=== PATIENT | female | born 1955 | race Caucasian/White ===

== ENCOUNTER → 2019-11-18 11:38 | Outpatient (CLI) | payer BC, SELFPAY ==
--- NOTE | ~2019-11-18 | MM_ITS ---
EXAMINATION: MM screening loan BI w melquiades HISTORY: Screening mammogram TECHNIQUE: Craniocaudal and mediolateral oblique 3-D tomosynthesis images were obtained and synthetic 2-D images were generated. CAD analysis was submitted and interpreted. COMPARISON: 09/12/2018, 07/09/2017, 01/24/2016 bilateral digital screening mammogram examinations BREAST PARENCHYMAL COMPOSITION: There are scattered areas of fibroglandular density. FINDINGS: There is no evidence of suspicious mass, calcification, or architectural distortion to sugg est malignancy in either breast. There has been no suspicious interval change. IMPRESSION: 1. No mammographic evidence of malignancy. 2. Recommend routine screening mammography in one year. BI-RADS Category 1: Negative Reviewed, dictated and finalized at location A. EL ASSISTANT
== END ==
PROVIDERS: PCP Internal Medicine; Visit Provider Internal Medicine
DX: Z12.31 Encounter for screening mammogram for malignant neoplasm of breast (principal)
CPT/HCPCS: 77063; 77067

== ENCOUNTER → 2021-01-10 13:25 | Outpatient (CLI) | payer BC, SELFPAY ==
--- NOTE | ~2021-01-10 | MM_ITS ---
EXAMINATION: MM screening loan BI w melquiades HISTORY: Screening mammogram TECHNIQUE: Craniocaudal and mediolateral oblique 3-D tomosynthesis images were obtained and synthetic 2-D images were generated. CAD analysis was submitted and interpreted. COMPARISON: 11/2019, 09/04/2018, 07/05/2017 bilateral digital screening mammogram examinations BREAST PARENCHYMAL COMPOSITION: There are scattered areas of fibroglandular density. FINDINGS: There is no evidence of suspicious mass, calcification, or architectural distortion to sugg est malignancy in either breast. There has been no suspicious interval change. IMPRESSION: 1. No mammographic evidence of malignancy. 2. Recommend routine screening mammography in one year. BI-RADS Category 1: Negative Reviewed, dictated and finalized at location A.
== END ==
PROVIDERS: PCP Internal Medicine; Visit Provider Internal Medicine
DX: Z12.31 Encounter for screening mammogram for malignant neoplasm of breast (principal)
CPT/HCPCS: 77063; 77067

== ENCOUNTER → 2022-03-05 10:54 | Outpatient (CLI) | payer MEDICARE, SELFPAY ==
--- NOTE | ~2022-03-05 | MM_ITS ---
EXAMINATION: MM screening loan BI w melquiades HISTORY: Screening mammogram TECHNIQUE: Craniocaudal and mediolateral oblique 3-D tomosynthesis images were obtained and synthetic 2-D images were generated. CAD analysis was submitted and interpreted. COMPARISON: 01/10/2021, 11/2019, 09/12/2018 bilateral screening mammogram examinations BREAST PARENCHYMAL COMPOSITION: There are scattered areas of fibroglandular density. FINDINGS: There is no evidence of suspicious mass, calcification, or architectural distortion to sugg est malignancy in either breast. There has been no suspicious interval change. IMPRESSION: 1. No mammographic evidence of malignancy. 2. Recommend routine screening mammography in one year. BI-RADS Category 1: Negative Reviewed, dictated and finalized at location A.
== END ==
PROVIDERS: PCP Internal Medicine; Visit Provider Internal Medicine
DX: Z12.31 Encounter for screening mammogram for malignant neoplasm of breast (principal)
CPT/HCPCS: 77063; 77067

== ENCOUNTER 2023-07-11 10:46 | Outpatient (CLI) | payer MEDICARE, SELFPAY ==
[2023-07-11 11:38] LABS: Creatine Kinase 78 U/L (26-192); NT Pro B Type Natriuretic Pept 298 pg/mL (0-125)
== END 2023-07-11 10:47 | disposition home or self-care (01) ==
LOC: CHSLAB 10:51
PROVIDERS: PCP Internal Medicine; Visit Provider Internal Medicine
DX: I10 Essential (primary) hypertension (principal); R94.31 Abnormal electrocardiogram [ECG] [EKG]
CPT/HCPCS: 36415; 82550; 82553; 83880; 84484

== ENCOUNTER 2023-07-17 10:55 | Outpatient (CLI) | payer MEDICARE, SELFPAY ==
--- NOTE | 2023-08-14 13:28 | WPDHOLTEREM ---
Holter/Event Monitor Holter/Event Monitor Date of procedure: 07/17/23 Holter/Event Procedure: Event Monitor Indications: Palpitations Conclusion: 1. 23 days event monitor between 07/17/23-08/13/23. There are 70 available transmissions for analysis. 2. Predominant rhythm is sinus rhythm. HR range 41-160 bpm; average HR 71 bpm. HR at 41 bpm was sinus bradycardia on 08/12/23 at 03:19. 3. There are occasional premature supraventricular complexes with total burden of 1%. There are short runs of atrial fibrillation with total burden of <.1%; the fastest HR is at 160 bpm. 4. There are occasional premature ventricular complexes with total burden of 1%. No ventricular tachycardia. 5. No significant pauses greater than 2 seconds. 6. Patient reports 27 episodes of symptoms of skipped beat, and symptoms other than listed which demonstrate 9 episodes of atrial fibrillation with HR range 78-112 bpm and 18 episodes in sinus rhythm, HR range 70-118 bpm with 6 episodes with PAC's.
== END 2023-07-17 10:56 | disposition home or self-care (01) ==
LOC: CHSCARD 10:58
PROVIDERS: PCP Internal Medicine; Visit Provider Internal Medicine
DX: R00.2 Palpitations (principal)
CPT/HCPCS: 93270

== ENCOUNTER 2023-07-29 09:22 | Outpatient (CLI) | payer MEDICARE, SELFPAY ==
--- NOTE | 2023-07-29 09:37 | ECHO_ITS ---
Patient Info Name: Valeri Chen Age: 68 years : 1955 Gender: Female Ht: 69 in Wt: 158 lbs BSA: 1.87 m2 HR: 65 bpm BP: 183 / 79 mmHg Heart Rhythm: Sinus Rhythm Technical Quality: Good Exam Date: 07/29/2023 10:28 AM Exam Location: Echo Lab Patient Status: Outpatient Admit Date: 07/29/2023 Staff Ordering Physician: Chas Gonzalez MD Digital Associate: Hero Frazier RDCS Attending Provider: Chas Gonzalez MD Referring Physician: Carlos ZAVALETA; Exam Type: CA echo doppler color flow Study Info Indications - HTN, ABN EKG Complete two-dimensional, color flow and Doppler transthoracic echocardiogram is performed. Summary 1. Complete two-dimensional, color flow and Doppler transthoracic echocardiogram is performed. 2. Left ventricular chamber dimension is normal. 3. Left ventricular systolic function is normal, estimated at 60-65%. 4. The left ventricular diastolic function is grade I diastolic dysfunction. 5. E/e' 7 is not elevated. 6. Left atrial chamber dimension is mildly enlarged. 7. There is mild mitral valve regurgitation. 8. There is trace tricuspid valve regurgitation. 9. No pulmonary hypertension, estimated pulmonary arterial systolic pressure is 29 mmHg. Left Ventricle E/e' 7 is not elevated. Left ventricular chamber dimension is normal. Left ventricular systolic function is normal, estimated at 60-65%. The left ventricular diastolic function is grade I diastolic dysfunction. Right Ventricle Right ventricular systolic function is normal and with normal TAPSE 2.0 cm. Right ventricular chamber dimension is normal. Left Atria Left atrial chamber dimension is mildly enlarged. Right Atria Right atrial chamber dimension is normal. Aortic Valve The aortic valve is trileaflet. There is no aortic valve stenosis. There is no aortic valve regurgitation. Pulmonic Valve There is no pulmonic regurgitation. Mitral Valve There is no mitral valve stenosis. There is mild mitral valve regurgitation. Tricuspid Valve There is trace tricuspid valve regurgitation. No pulmonary hypertension, estimated pulmonary arterial systolic pressure is 29 mmHg. Pericardium/Pleural There is no pericardial effusion. Inferior Vena Cava Normal inferior vena cava with >50% collapse upon inspiration consistent with normal right atrial pressure, 5 mmHg. Aorta The aortic root size at the sinus of Valsalva is normal. Left Ventricular Outflow Tract Name Value Normal LVOT 2D LVOT Diameter 2.1 cm LVOT Doppler LVOT Peak Velocity 140 cm/s LVOT Peak Gradient 8 mmHg LVOT Mean Gradient 4 mmHg LVOT VTI 31 cm LVOT VTI/AV VTI Ratio 0.9 LVOT Stroke Volume 104 ml Pulmonic Valve Name Value Normal RVOT Doppler RVOT Peak Gradient 1 mmHg PV Doppler --------
== END 2023-07-29 09:23 | disposition home or self-care (01) ==
LOC: CHSIMG 09:24
PROVIDERS: PCP Internal Medicine; Visit Provider Internal Medicine
DX: I10 Essential (primary) hypertension (principal); R94.31 Abnormal electrocardiogram [ECG] [EKG]; I34.0 Nonrheumatic mitral (valve) insufficiency
CPT/HCPCS: 93306

== ENCOUNTER 2023-08-12 08:02 | Outpatient (CLI) | payer MEDICARE, SELFPAY ==
--- NOTE | 2023-08-12 08:09 | EST_ITS ---
Patient Info Name: Valeri Chen Age: 68 years : 1955 Gender: Female Ht: 69 in Wt: 158 lbs BSA: 1.87 m2 HR: 75 bpm BP: 136 / 93 mmHg Heart Rhythm: Sinus Rhythm Technical Quality: Good Exam Date: 08/12/2023 9:46 AM Exam Location: Echo Lab Patient Status: Outpatient Admit Date: 08/12/2023 Staff Ordering Physician: Chas Goznalez MD Attending Provider: Chas Gonzalez MD Exam Type: CA stress test treadmill w NM Study Info A treadmill exercise stress test was performed. Summary 1. 1. Abnormal manual mode protocol for ischemic ST changes by ECG criteria. 2. 2. Reduced functional capacity, achieving 7 METs of workload, limited by development of supraventricular tachycardia. 3. 3. Supraventricular tachycardia developed during exercise. 4. 4. Nuclear scan to follow and will be reported separately. Please correlate with it. Protocol: Manual Mode Stress ECG Details Stage: REST Duration (min): 1 min : 58 sec Beasley: --- Speed (mph): 0.0 Grade (%): 0 HR (bpm): 76 SBP (mmHg): 136 DBP (mmHg): 93 METS: --- Stage: REST Duration (min): 5 min : 55 sec Beasley: --- Speed (mph): 0.0 Grade (%): 0 HR (bpm): 84 SBP (mmHg): 136 DBP (mmHg): 93 METS: --- Stage: STAGE 1 Duration (min): 1 min : 0 sec Beasley: --- Speed (mph): 1.7 Grade (%): 10 HR (bpm): 113 SBP (mmHg): 136 DBP (mmHg): 93 METS: --- Stage: STAGE 1 Duration (min): 2 min : 0 sec Beasley: --- Speed (mph): 1.7 Grade (%): 10 HR (bpm): 125 SBP (mmHg): 136 DBP (mmHg): 93 METS: --- Stage: STAGE 1 Duration (min): 3 min : 0 sec Beasley: --- Speed (mph): 1.7 Grade (%): 10 HR (bpm): 125 SBP (mmHg): 183 DBP (mmHg): 78 METS: --- Stage: STAGE 2 Duration (min): 1 min : 0 sec Beasley: --- Speed (mph): 2.5 Grade (%): 12 HR (bpm): 136 SBP (mmHg): 183 DBP (mmHg): 78 METS: --- Stage: STAGE 2 Duration (min): 2 min : 0 sec Beasley: --- Speed (mph): 2.5 Grade (%): 12 HR (bpm): 144 SBP (mmHg): 183 DBP (mmHg): 78 METS: --- Stage: STAGE 2 Duration (min): 3 min : 0 sec Beasley: --- Speed (mph): 2.3 Grade (%): 0 HR (bpm): 162 SBP (mmHg): 120 DBP (mmHg): 78 METS: --- Stage: STAGE 2 Duration (min): 3 min : 30 sec Beasley: --- Speed (mph): 2.3 Grade (%): 0 HR (bpm): 178 SBP (mmHg): 120 DBP (mmHg): 78 METS: --- Stage: RECOVERY Duration (min): 0 min : 29 sec Beasley: --- Speed (mph): 0.0 Grade (%): 0 HR (bpm): 162 SBP (mmHg): 120 DBP (mmHg): 78 METS: --- Stage: RECOVERY Duration (min): 1 min : 29 sec Beasley: --- Speed (mph): 0.0 Grade (%): 0 HR (bpm): 92 SBP (mmHg): 120 DBP (mmHg): 78 METS: --- Stage: RECOVERY Duration (min): 2 min : 29 sec Beasley: --- Speed (mph): 0.0 Grade (%): 0 HR (bpm): 91 SBP (mmHg): 153 DBP (mmHg): 89 METS: --- Stage: RECOVERY Duration (min
--- NOTE | 2023-08-12 13:51 | P.NST_ITS ---
Nuclear Stress Test INDICATIONS Indications: Palpitations PROCEDURE Procedure Performed: Myocardial Perf Spect-Multi Procedure: Patient exercised a modified manual protocol and at peak HR was injected with 30 mCi of cardiolyte. Multiple tomographic images were obtained. These are of good quality. There is evidence of moderate size, moderate severity anterior perfusion defect with stress imaging. A separate resting images were obtained after patient was injected with 10 mCi of cardiolyte. Multiple tomographic images were obtained. These are of good quality. There is evidence of moderate size, moderate severity anterior perfusion defect with rest imaging. CONCLUSION Conclusion: 1. Myocardial perfusion imaging demonstrating a fixed moderate size anterior perfusion defect suggestive of breast attenuation artifact. 2. No evidence of reversible ischemia. 3. Left ventriculogram demonstrates normal measured ejection fraction of 69% wi th no wall motion abnormalities. 4. TID score 1.02 is normal.
== END 2023-08-12 08:03 | disposition home or self-care (01) ==
LOC: CHSCARD 08:04
PROVIDERS: PCP Internal Medicine; Visit Provider Internal Medicine
DX: R94.31 Abnormal electrocardiogram [ECG] [EKG] (principal); R94.39 Abnormal result of other cardiovascular function study
CPT/HCPCS: 78452; 93017; A9502

== ENCOUNTER 2023-08-13 12:29 | Outpatient (CLI) | payer MEDICARE, SELFPAY ==
--- NOTE | ~2023-08-13 | MM_ITS ---
EXAMINATION: MM screening loan BI w melquiades HISTORY: Screening mammogram TECHNIQUE: Craniocaudal and mediolateral oblique 3-D tomosynthesis images were obtained and synthetic 2-D images were generated. CAD analysis was submitted and interpreted. COMPARISON: 03/05/2022, 01/10/2021, 11/2019 bilateral screening mammogram examinations BREAST PARENCHYMAL COMPOSITION: There are scattered areas of fibroglandular density. FINDINGS: There is no evidence of suspicious mass, calcification, or architectural distortion to sugg est malignancy in either breast. There has been no suspicious interval change. IMPRESSION: 1. No mammographic evidence of malignancy. 2. Recommend routine screening mammography in one year. BI-RADS Category 1: Negative Reviewed, dictated and finalized at location A. [facility] RO[facility]
--- NOTE | ~2023-08-13 | DEXA_ITS ---
Bone Density Report Name: DOMINIQUE PRICE Age: 68 Sex: Female Ethnicity: White Date of : 1955 Indication: postmenopausal; screening for osteoporosis; height loss; Referring Provider: Chas Gonzalez Study: Bone densitometry was performed. Exam Date: August 13, 2023 Accession number: [id number] Bone Density: Region BMD T-score Z-score Classification AP Spine(L1-L4) 1.125 0.7 2.7 Normal Femoral Neck (Left) 0.810 -0.4 1.3 Normal Total Hip (Left) 0.943 0.0 1.4 Normal Femoral Neck (Right) 0.729 -1.1 0.6 Osteopenia Total Hip (Right) 0.932 -0.1 1.3 Normal Femoral Neck Mean 0.769 -0.7 1.0 Normal Total Hip Mean 0.938 0.0 1.4 Normal World Health Organization criteria for BMD impression classify patients as: Normal (T-score at or above -1.0), Osteopenia (T-score between -1.0 and -2.5), or Osteoporosis (T-score at or below -2.5). 10-year Fracture Risk(1): Major Osteoporotic Fracture 8.4% Hip Fracture 0.8% Reported Risk Factors: [place] (), Neck BMD=0.729, BMI=23.0 (1) FRAX(R) Version 3.08. Fracture probability calculated for an untreated patient. Fracture probability may be lower if the patient has received treatment. Clinical Information Provided by Patient: Patient maximum height was 69 Menopause Age: 46 Onset of menses at age 12 Number of children 2 Impression: The patient has low bone mass, based on the Right Femoral Neck T-score. Discussion: BONE DENSITY IS LOW AT ONE OR MORE SKELETAL SITES. This patient's lowest T-score is low at one or more skeletal sites. It meets the World Health Organization's (WHO) criteria for ?low bone mass? (T-score between -1.0 and -2.5). The patient's 10-year risk of fracture as calculated by FRAX is less than the threshold where pharmacological therapy is recommended by the National Osteoporosis Foundation (NOF). However, all treatment decisions require clinical judgment and consideration of individual patient factors, including patient preferences, comorbidities, previous drug use, risk factors not captured in the FRAX model (e.g., frailty, falls, vitamin D deficiency, increased bone turnover, interval significant decline in bone density) and possible under or overestimation of fracture risk by FRAX. The patient should follow a healthful lifestyle (good nutrition with adequate calcium and vitamin D, and appropriate weight-bearing exercise). Follow-Up: Consider repeating this study in 2 to 3 years to reassess this patient's status, or sooner if there is some new clinical indication. Reported by: Dr. Galen Yee on 08/13/2023 1:06:00 PM. Reviewed, dictated and finalized at location A. [facility]
== END 2023-08-13 12:30 | disposition home or self-care (01) ==
LOC: CHSIMG 12:30
PROVIDERS: PCP Internal Medicine; Visit Provider Internal Medicine
DX: Z12.31 Encounter for screening mammogram for malignant neoplasm of breast (principal); Z78.0 Asymptomatic menopausal state; M85.88 Other specified disorders of bone density and structure, other site
CPT/HCPCS: 77063; 77067; 77080

== ENCOUNTER 2024-12-01 11:58 | Outpatient (CLI) | payer MEDICARE, SELFPAY ==
--- NOTE | ~2024-12-01 | MM_ITS ---
EXAMINATION: MM screening loan BI w melquiades HISTORY: Screening TECHNIQUE: Craniocaudal and mediolateral oblique 3-D tomosynthesis images were obtained and synthetic 2-D images were generated. CAD analysis was submitted and interpreted. COMPARISON: Comparison to multiple prior studies sequentially, with oldest reviewed study dated 06/17. BREAST PARENCHYMAL COMPOSITION: Not dense: There are scattered areas of fibroglandular density. FINDINGS: There is no evidence of suspicious mass, calcification, or architectural distortion to sugg est malignancy in either breast. There has been no suspicious interval change. IMPRESSION: 1. No mammographic evidence of malignancy. 2. Recommend routine screening mammography in one year. BI-RADS Category 1: Negative Reviewed, dictated and finalized at location B.
--- OUTSIDE RECORDS SUMMARY | 2024-12-01 13:29 | XMS_ITS | Encounter Summary ---
Author Organization [facility] Address [address] [place] [address] Phone Care Team Providers Care Packing Clerk Name Role Phone Chas Gonzalez MD Primary Care Provider [phone] Encounter Details Date Type Department Care Team (Late st Contact Info) Description 11/11/2024 Telephone [facility] Cardiology [address] [facility] 8th Floor [address] [place] [phone] Presley Wang MD PhD [address] [id number] Social History Tobacco Use Types Packs/Day Years Used Date Smoking Tobacco: Never Personal Safety Answer Date Recorded Getting School Help Needed Not on file 09/01 Comments Unknown Sex and Gender Information Value Date Recorded Sex Assigned at Not on file 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 Wang R FEEDER * Telephone Encounter - Yris Jeter - 11/17/2024 11:40 AM CST EP SCHEDULING Patient is returning call. R FEEDER * Telephone Encounter - Wendy Harrison - 11/11/2024 9:32 AM CST Felipe EP Scheduling Pt would like a call back to [facility] appt that was cancelled. R FEEDER documented in this encounter Plan of Treatment Not on file documented as of this encounter Visit Diagnoses Not on filedocumented in this encounter Care Teams Packing Clerk Relationship Specialty Start Date End Date Chas Gonzalez MD PCP - General Internal Medicine 02/04/19 documented as of this encounter
--- OUTSIDE RECORDS SUMMARY | 2024-12-01 13:29 | XMS_ITS | Referral Summary ---
Author Organization [facility] [address] [facility] [address] Address [address] [place] [phone] Care Team Providers Care Rf Design Engineer Name Role Phone Chas Gonzalez MD Primary Care Provider Encounters Date Type Department Care Team Description 11/11/2024 Telephone [facility] [address] [facility] 8th [place] [address] [place] [address] Presley Wang MD PhD from Last 3 Months Allergies No known active allergies Medications No known medications Active Problems Problem Noted Date Diagnosed Date Pain due to varicose veins of lower extremity Assessment & Plan (03/25/2019 3:53 PM CDT): Arrange venous Doppler to determine extent of venous insufficiency. We discussed treatment with EVLT, phlebectomy and sclerotherapy extensively. She was given a prescription for 30-40 mmHg thigh high support hose and pamphlets on EVLT and sclerotherapy. 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 Gender Identity Not on file Sexual Orientation Not on file Last Filed Vital Signs Vital Sign Reading Time Taken Comments Blood Pressure 118/60 03/25/2019 10:22 AM CDT Pulse - - Temperature - - Respiratory Rate - - Oxygen Saturation - - Inhaled Oxygen Concentration - - Weight 70.3 kg (155 lb) 03/25/2019 10:22 AM CDT Height 175.3 cm (5' 9 ) 03/25/2019 10:22 AM CDT Body Mass Index 22.89 03/25/2019 10:22 AM CDT Plan of Treatment Not on file Insurance [facility] Address: [address] [place] [address] MEDICARE [facility] Care Teams Rf Design Engineer Relationship Specialty Start Date End Date Chas Gonzalez MD PCP - General Internal Medicine 02/04/19
--- OUTSIDE RECORDS SUMMARY | 2024-12-01 13:29 | XMS_ITS | Clinical Summary ---
Author Organization [facility] Address [address] [place] [address] Phone Care Team Providers Care Box Worker Name Role Phone Chas Gonzalez MD Primary Care Provider + Allergies No known active allergies Medications No known medications Family History Medical History Relation Name Comments Colon Cancer Neg Hx Social History Tobacco Use Types Packs/Day Years Used Date Smoking Tobacco: Never Alcohol Use Standard Drinks/Week Comments Yes 2 (1 standard drink = 0.6 oz pur e alcohol) Comments Unknown Sex and Gender Information Value Date Recorded Sex Assigned at Not on file Legal Sex Female 3:56 AM BEND SORTER Gender Identity Not on file Sexual Orientation Not on file Last Filed Vital Signs Vital Sign Reading Time Taken Comments Blood Pressure - - Pulse - - Temperature - - Respiratory Rate - - Oxygen Saturation - - Inhaled Oxygen Concentration - - Weight 69.4 kg (153 lb) 02/26/2017 8:37 AM CDT Height 175.3 cm (5' 9 ) 02/26/2017 8:37 AM CDT Body Mass Index 22.59 02/26/2017 8:37 AM CDT Plan of Treatment Health Maintenance Due Date Last Done Comments DTAP/TDAP/TD VACCINES (1 - Tdap) 1974 BREAST CANCER SCREENING 1995 COLORECTAL SCREENING 2000 Colorectal Cancer Screening 2000 FIT-DNA Q 3 years 2000 FIT/FOBT Q 1 year 2000 Flex Sig/CT Colonography Q 5 years 2000 PNEUMOCOCCAL VACCINE 50+ YEARS (1 of 1 - PCV) 07/06/20 05 ZOSTER VACCINE (1 of 2) 2005 OSTEOPOROSIS SCREENING 2020 INFLUENZA VACCINE (#1) 2024 RSV VACCINE (60+ or ) (1 - 1-dose 75+ series) 2030 Insurance [facility] BLUE [employer] PPO Care Teams Box Worker Relationship Specialty Start Date End Date Chas Gonzalez MD [address] [place] [phone] PCP - General Internal Medicine 02/20/17
--- OUTSIDE RECORDS SUMMARY | 2024-12-01 13:29 | XMS_ITS | Clinical Summary ---
Author Organization [facility] [place] [address] Address [address] [place] [phone] Care Team Providers Care Windows Support Engineer Name Role Phone Chas Gonzalez MD Primary Care Provider [phone] Allergies No known active allergies Medications No [...] 01/27/2013 Malignant melanoma of lower extremity 10/24/2012 Encounters Date Type Department Care Team Description 11/11/2024 Telephone [facility] Cardiology [address] [facility] 8th [place] [address] [place] [address] Presley Wang MD PhD from Last 3 Months Surgical History Surgery Date Site/Laterality Comments APPENDECTOMY GROWTH PLATE SURGERY Left at age 11, left leg growth plate surgery due to injury of right leg fracture through growth plate. Medical History Medical History Date Comments Malignant neoplasm of skin Skin cancer - (Added by TW Conv) Personal history of other ma lignant neoplasm of skin Personal history of skin can cer - (Added by TW Conv) Personal history of other ma lignant neoplasm of skin History of skin cancer - (Ad ded by TW Conv) Personal history of malignan t melanoma of skin History of malignant melanom a of skin - (Added by TW Conv) Family History Medical History Relation Name Comments Seizures Father Seizure - (Adde d by TW Conv) Arthritis Mother Family history of arthritis - (Added by TW Conv) Heart disease Mother Family history of cardiac disorder - (Added by TW Conv) Hypertension Mother Family history of hypertension - (Added by TW Conv) Relation Name Status Comments Father Mother Social History Tobacco Use Types Packs/Day Years Used Date Smoking Tobacco: Never Personal Safety Answer Date Recorded Getting School Help Needed Not on file 09/01 Comments Unknown Sex and Gender Information Value Date Recorded Sex Assigned at Not on file Legal Sex Female 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 Gender Identity Not on file Sexual Orientation Not on file Obstetrics History Last Filed Vital Signs Vital Sign Reading [...] 03/25/2019 10:22 AM CDT Plan of Treatment Health Maintenance Due Date Last Done Comments Breast Cancer Screening-Mammogram 1955 Colon Cancer Screening-Colonoscopy 1955 Depression Screening 1955 Fall Risk Assessment 1955 Hepatitis C Screening 1955 Osteoporosis Screening-Bone Density Scan 1955 DTaP/Tdap/Td Vaccine (1 - Tdap) 1966 Hepatitis B Screening 1973 Pneumococcal vaccine 65+ (1 of 1 - PCV) 2005 Zoster Vaccine (1 of 2) 2005 Well Visit 65+ 2020 Influenza Vaccine (#1) 2024 Insurance [employer] [facility] Member Subscriber Plan / Payer ( fective 2021-Present) Name:AprilValeri Relation to Subscriber:Self Name:Mehnaz Chenlucio Tavera Payer ID:[id number] Group ID:Not on file Type:[employer] Address: [address] [place] [address] Care Teams Windows Support Engineer Relationship Specialty Start Date End Date Chas Gonzalez MD PCP - General Internal Medicine 02/04/19
--- OUTSIDE RECORDS SUMMARY | 2024-12-01 13:29 | XMS_ITS | Clinical Summary ---
Author Organization [facility] Address [address] [address] Phone Care Team Providers Care Founder & Ceo Name Role Phone Chas Gonzalez MD Primary Care Provider [phone] Social History Tobacco Use Types Packs/Day Years Used Date Smoking Tobacco: Never Assessed Comments Unknown Sex and Gender Information Value Date Recorded Sex Assigned at Not on file Legal Sex Female 8:53 AM CDT Gender Identity Not on file Sexual Orientation Not on file Plan of Treatment Health Maintenance Due Date Last Done Comments DEXA Bone Density 1955 Hepatitis C Virus (HCV) Screening 1955 TdaP Immunization 1955 Cologuard 2005 Immunochemical Fecal Occult Blood 2005 Mammogram 2005 Pneumococcal Immunization (5 0+ years) (1 of 1 - PCV) 2005 Zoster Immunization (1 of 2) 2005 Influenza Immunization (#1) 2024 SARS-COV-2 Immunization ( season) 2024 Colonoscopy 06/10/2026 06/10/2019 Colorectal Cancer Screening 06/10/2026 Respiratory Syncytial Virus (RSV) Immunization (Adult) (1 - 1-dose 75+ series) 2030 06/10/2019 Hepatitis B Immunization Aged Out No longer eligible based on patient's age to complete this topic Meningococcal Immunization (ACWY) Aged Out No longer eligible based on patient's age to complete this topic Rotavirus Immunization Aged Out No lo nger eligible based on patient's age to complete this topic Procedures Procedure Name Priority Date/Time Associated Diagnosis Comments COLONOSCOPY Routine 06/10/2019 from Last 3 Months or Most Recently Relevant to Health Maintenance Results * COLONOSCOPY (06/10/2019) [place] Richi Lalitha DO PROCEDURE/MINOR SURGICAL ORDERA BLES Final Result from Last 3 Months or Most Recently Relevant to Health Maintenance Insurance [facility] Care Teams Founder & Ceo Relationship Specialty Start Date End Date Chas Gonzalez MD [address] [place] [address] PCP - General Internal Medicine 01/09/19
== END 2024-12-01 11:59 | disposition home or self-care (01) ==
LOC: CHSIMG 12:01
PROVIDERS: PCP Internal Medicine; Visit Provider Internal Medicine
DX: Z12.31 Encounter for screening mammogram for malignant neoplasm of breast (principal)
CPT/HCPCS: 77063; 77067